=== PATIENT | female | born 1930 | race Caucasian/White ===

== ENCOUNTER 2017-09-03 17:32 | Inpatient (IN) | payer MEDICARE ==
[~2017-09-03] VITALS: Ht 162.6 cm; Wt 64.5 kg
[~2017-09-03 17:32] MED LIST: ASPIRIN81 MG PO; BETAPACE 80 MG80 MG PO; COLACE100 MG PO; HYDROCODON-ACE1 EAC7 PO; PLAVIX75 MG PO; PRAVACHOL20 MG PO; PROTONIX40 MG PO
[2017-09-03 18:06] LABS: BASOPHILS 0.1 % (0-2); EOSINOPHILS 0.2 % (0-7); HEMATOCRIT 42.8 % (36.0-48.0); HEMOGLOBIN 14.7 g/dL (12-16); IMMATURE GRANULOCYTES 0.2 % (0-5); LYMPHOCYTES 8.2 % (15-50); MCH 30.8 pg (26.0-34.0); MCHC 34.3 g/dL (31.0-37.0); MCV 89.7 fL (80.0-100.0); MEAN PLATELET VOLUME 10.5 fL (7.4-10.4); MONOCYTES 10.4 % (2-11); NEUTROPHILS 80.9 % (40-80); PLATELET COUNT 262 10x3/uL (130-400); RBC 4.77 10x6/uL (4.00-5.40); RDW 13.8 % (11.5-14.5); WBC 12.4 10x3/uL (4.8-10.8)
[2017-09-03 18:21] LABS: ALBUMIN 3.4 g/dL (3.4-5.0); ALKALINE PHOSPHATASE 120 U/L (46-116); ALT (SGPT) 68 U/L (10-68); BILIRUBIN - TOTAL 1.53 mg/dL (0.2-1.3); CALC OSMOLALITY 293 mosm/kg (275-300); CALCIUM 9.3 mg/dL (8.5-10.1); CHLORIDE - SERUM 102 mmol/L (98-107); CREATININE - SERUM 0.9 mg/dL (0.6-1.3); GLUCOSE 90 mg/dL (74-106); POTASSIUM - SERUM 3.3 mmol/L (3.5-5.1); PROTEIN - SERUM 7.2 g/dL (6.4-8.2); SODIUM 141 mmol/L (136-145); UREA NITROGEN 48 mg/dL (7-18); eGFR NON AFRICAN AMERICAN 63 mL/min (90-120)
[2017-09-03 18:28] LABS: APPEARANCE CLEAR (CLEAR); BILIRUBIN NEGATIVE (NEGATIVE); COLOR YELLOW (YELLOW); GLUCOSE NEGATIVE (NEGATIVE); KETONE MODERATE mg/dL (NEGATIVE); PROTEIN TRACE mg/dL (NEGATIVE); UROBILINOGEN NORMAL (NORMAL)
[2017-09-03 18:30] LABS: BACTERIA FEW /hpf (NONE SEEN); RED CELLS - URINE 0-5 /hpf (0-5); WHITE CELLS - URINE OCC /hpf (0-5)
[2017-09-03 18:53] LABS: CKMB 53.6 U/L (0.0-3.6); CREATINE KINASE 1892 UL (21-215)
[2017-09-03 18:57] LABS: TROPONIN-I 12.355 ng/mL (0.000-0.060)
[2017-09-03 21:36] VITALS: BP 159/66; BMI 23.5
[2017-09-03 22:00] VITALS: BP 159/66
[2017-09-03 23:00] VITALS: BP 131/52
[2017-09-04] VITALS (31 sets, daily range): BP systolic 72–135; BP diastolic 5–71
[2017-09-04 01:36] LABS: CREATINE KINASE 1382 UL (21-215); TROPONIN-I 11.317 ng/mL (0.000-0.060)
[2017-09-04 05:27] LABS: BASOPHILS 0.1 % (0-2); EOSINOPHILS 0.8 % (0-7); HEMATOCRIT 36.7 % (36.0-48.0); HEMOGLOBIN 12.2 g/dL (12-16); IMMATURE GRANULOCYTES 0.2 % (0-5); LYMPHOCYTES 11.3 % (15-50); MCH 30.4 pg (26.0-34.0); MCHC 33.2 g/dL (31.0-37.0); MCV 91.5 fL (80.0-100.0); MEAN PLATELET VOLUME 10.5 fL (7.4-10.4); MONOCYTES 11.2 % (2-11); NEUTROPHILS 76.4 % (40-80); PLATELET COUNT 235 10x3/uL (130-400); RBC 4.01 10x6/uL (4.00-5.40); WBC 9.3 10x3/uL (4.8-10.8)
[2017-09-04 06:08] LABS: CALC OSMOLALITY 290 mosm/kg (275-300); CALCIUM 8.3 mg/dL (8.5-10.1); CARBON DIOXIDE 23.1 mmol/L (21.0-32.0); CHLORIDE - SERUM 104 mmol/L (98-107); CKMB 22.7 U/L (0.0-3.6); CREATININE - SERUM 0.8 mg/dL (0.6-1.3); GLUCOSE 75 mg/dL (74-106); MAGNESIUM - SERUM 2.2 mg/dL (1.8-2.4); POTASSIUM - SERUM 3.1 mmol/L (3.5-5.1); SODIUM 140 mmol/L (136-145); UREA NITROGEN 48 mg/dL (7-18); eGFR NON AFRICAN AMERICAN 72 mL/min (90-120)
[2017-09-04 06:10] LABS: CREATINE KINASE 930 UL (21-215)
[2017-09-04 12:30] LABS: CKMB 16.1 U/L (0.0-3.6); CREATINE KINASE 645 UL (21-215); TROPONIN-I 6.611 ng/mL (0.000-0.060)
[2017-09-05] VITALS (23 sets, daily range): BP systolic 100–154; BP diastolic 49–98; Ht 162.6 cm; Wt 64.5 kg
[2017-09-05 05:03] LABS: BASOPHILS 0.1 % (0-2); EOSINOPHILS 3.2 % (0-7); HEMATOCRIT 34.1 % (36.0-48.0); HEMOGLOBIN 11.4 g/dL (12-16); IMMATURE GRANULOCYTES 0.3 % (0-5); LYMPHOCYTES 13.9 % (15-50); MCH 30.6 pg (26.0-34.0); MCHC 33.4 g/dL (31.0-37.0); MCV 91.7 fL (80.0-100.0); MEAN PLATELET VOLUME 10.8 fL (7.4-10.4); MONOCYTES 9.3 % (2-11); NEUTROPHILS 73.2 % (40-80); PLATELET COUNT 206 10x3/uL (130-400); RBC 3.72 10x6/uL (4.00-5.40); RDW 14.1 % (11.5-14.5); WBC 9.1 10x3/uL (4.8-10.8)
[2017-09-05 05:25] LABS: ALKALINE PHOSPHATASE 79 U/L (46-116); BILIRUBIN - TOTAL 0.76 mg/dL (0.2-1.3); CALCIUM 7.6 mg/dL (8.5-10.1); CARBON DIOXIDE 25.7 mmol/L (21.0-32.0); CHLORIDE - SERUM 109 mmol/L (98-107); CREATININE - SERUM 0.6 mg/dL (0.6-1.3); PROTEIN - SERUM 5.4 g/dL (6.4-8.2); SODIUM 142 mmol/L (136-145); eGFR NON AFRICAN AMERICAN > 90 mL/min (90-120)
[2017-09-05 05:27] LABS: ALBUMIN 2.3 g/dL (3.4-5.0); ALT (SGPT) 41 U/L (10-68); CALC OSMOLALITY 290 mosm/kg (275-300); GLUCOSE 123 mg/dL (74-106); POTASSIUM - SERUM 2.9 mmol/L (3.5-5.1); UREA NITROGEN 33 mg/dL (7-18)
[2017-09-06] VITALS (21 sets, daily range): BP systolic 120–169; BP diastolic 62–94
[2017-09-06 05:14] LABS: BASOPHILS 0.2 % (0-2); EOSINOPHILS 4.5 % (0-7); HEMATOCRIT 37.6 % (36.0-48.0); HEMOGLOBIN 12.2 g/dL (12-16); IMMATURE GRANULOCYTES 0.2 % (0-5); MCH 30.3 pg (26.0-34.0); MCHC 32.4 g/dL (31.0-37.0); MCV 93.5 fL (80.0-100.0); MEAN PLATELET VOLUME 10.9 fL (7.4-10.4); MONOCYTES 9.3 % (2-11); NEUTROPHILS 67.8 % (40-80); PLATELET COUNT 210 10x3/uL (130-400); RBC 4.02 10x6/uL (4.00-5.40); RDW 14.2 % (11.5-14.5); WBC 8.6 10x3/uL (4.8-10.8)
[2017-09-06 05:36] LABS: ALBUMIN 2.5 g/dL (3.4-5.0); ALKALINE PHOSPHATASE 86 U/L (46-116); ALT (SGPT) 39 U/L (10-68); BILIRUBIN - TOTAL 0.57 mg/dL (0.2-1.3); CALC OSMOLALITY 287 mosm/kg (275-300); CALCIUM 7.6 mg/dL (8.5-10.1); CARBON DIOXIDE 27.4 mmol/L (21.0-32.0); CHLORIDE - SERUM 111 mmol/L (98-107); CREATININE - SERUM 0.6 mg/dL (0.6-1.3); GLUCOSE 98 mg/dL (74-106); POTASSIUM - SERUM 3.9 mmol/L (3.5-5.1); PROTEIN - SERUM 5.8 g/dL (6.4-8.2); SODIUM 143 mmol/L (136-145); eGFR NON AFRICAN AMERICAN > 90 mL/min (90-120)
[2017-09-06 05:53] LABS: UREA NITROGEN 20 mg/dL (7-18)
[2017-09-07] VITALS (13 sets, daily range): BP systolic 133–179; BP diastolic 57–84
[2017-09-07 04:23] LABS: BASOPHILS 0.2 % (0-2); EOSINOPHILS 3.2 % (0-7); HEMATOCRIT 36.8 % (36.0-48.0); IMMATURE GRANULOCYTES 0.2 % (0-5); LYMPHOCYTES 11.5 % (15-50); MCH 30.4 pg (26.0-34.0); MCHC 32.6 g/dL (31.0-37.0); MCV 93.2 fL (80.0-100.0); MEAN PLATELET VOLUME 10.9 fL (7.4-10.4); MONOCYTES 7.6 % (2-11); NEUTROPHILS 77.3 % (40-80); PLATELET COUNT 197 10x3/uL (130-400); RBC 3.95 10x6/uL (4.00-5.40); RDW 13.9 % (11.5-14.5); WBC 9.3 10x3/uL (4.8-10.8)
[2017-09-07 04:48] LABS: ALBUMIN 2.5 g/dL (3.4-5.0); ALKALINE PHOSPHATASE 103 U/L (46-116); ALT (SGPT) 42 U/L (10-68); BILIRUBIN - TOTAL 0.71 mg/dL (0.2-1.3); CALC OSMOLALITY 281 mosm/kg (275-300); CALCIUM 7.8 mg/dL (8.5-10.1); CHLORIDE - SERUM 107 mmol/L (98-107); CREATININE - SERUM 0.5 mg/dL (0.6-1.3); GLUCOSE 98 mg/dL (74-106); PROTEIN - SERUM 6.1 g/dL (6.4-8.2); SODIUM 141 mmol/L (136-145); eGFR NON AFRICAN AMERICAN > 90 mL/min (90-120)
[2017-09-07 04:50] LABS: UREA NITROGEN 14 mg/dL (7-18)
[2017-09-07] MEDS ORDERED: NORVASC5 MG PO (10:21)
== END 2017-09-07 15:37 | DRG 553 ==
LOC: D.ER 17:32 → D.MS 19:19 → D.CVICU 19:19 → D.ICU 20:19 → D.CVICU 09-06 21:58
PROVIDERS: Family Medicine
DX: M16.11 Unilateral primary osteoarthritis, right hip (principal); I21.4 Non-ST elevation (NSTEMI) myocardial infarction; I24.8 Other forms of acute ischemic heart disease; F03.90 Unspecified dementia, unspecified severity, without behavioral disturbance, psychotic disturbance, mood disturbance, and anxiety; I25.10 Atherosclerotic heart disease of native coronary artery without angina pectoris; I95.9 Hypotension, unspecified; W19.XXXA Unspecified fall, initial encounter; I10 Essential (primary) hypertension; I48.91 Unspecified atrial fibrillation; E78.5 Hyperlipidemia, unspecified; E86.0 Dehydration; Z95.5 Presence of coronary angioplasty implant and graft; R41.0 Disorientation, unspecified

== ENCOUNTER 2017-09-07 15:36 | Inpatient (IN) | payer MEDICARE ==
[~2017-09-07] VITALS: Ht 162.6 cm; Wt 39.0 kg
--- NOTE | ~2017-09-07 | CN ---
PATIENT NAME:DIANA GOMEZ MEDICAL RECORD: [id number] : [birth year] LOCATION:[id number] ADMIT DATE: 09/07/17 ACCOUNT: [id number] CONSULTING PHYSICIAN: MADINA BURGOS MD REFERRING PHYSICIAN: SANDIE CONNELLY MD DATE OF CONSULTATION: 09/10/2017 PSYCHIATRIC CONSULTATION IDENTIFYING DATA: The patient is 86 years old, and she is admitted to the rehab unit secondary to hip fracture with fall and some rhabdomyolysis. The patient is a very nice lady, but she is only partially oriented. She tells me that she did not break her hip, but that she fell and does not really know how she got all the bruises on her arms. I presume she has bruises elsewhere, but her arms are sticking out of covers. She tells me that she likes being here. She would like to get stronger. She has no depressive symptoms. She denies psychotic symptoms, and she denies intent to harm herself or others. She has no history of substance abuse. MENTAL STATUS EXAMINATION: The patient is awake, alert, and oriented to person, place, and somewhat to time and situation. Her mood is euthymic. Her affect is appropriate. Thought processes are slightly circumstantial, but not disorganized in any serious way. Her memory, concentration, and abstraction abilities are at least mildly impaired, probably more moderately so. She certainly has no evidence of direct dangerousness to herself or others as well as no psychotic symptoms. ASSESSMENT: Dementia, type uncertain, but probably Alzheimer disease. PLAN: This patient is in need of 26-wnuz-m-day supervision. The least restrictive environment is something that needs to be worked out between her, her daughter, and case management. She is not acutely dangerous. She does not meet criteria for an inpatient stay on the behavioral unit and certainly given the circumstances that brought her here, she is going to need significant help. There is no evidence of direct or acute dangerousness to others, and if a group home is the least restrictive environment, I see no problem with her going there. TRANSINT:[id number] Voice Confirmation ID: [id number] DOCUMENT ID: [id number] MADINA BURGOS MD at 1203 CC: [id number] DICTATION DATE: 09/10/17 1352 SUB ARC OPERATOR: 09/10/17 1423 ADM IN [facility] [address] [facility], [facility]
--- NOTE | ~2017-09-07 | RHP ---
PATIENT: DIANA GOMEZ MEDICAL RECORD: [id number] ACCOUNT: [id number] LOCATION:[facility] : [birth year] ADMISSION DATE: 09/07/17 REHABILITATION HISTORY AND PHYSICAL EXAMINATION POST ADMISSION PHYSICIAN EXAMINATION DATE OF ADMISSION: 09/07/2017. ADMITTING DIAGNOSIS: Rhabdomyolysis. HISTORY OF PRESENT ILLNESS: The patient admitted to the inpatient rehab with neurological condition and rhabdomyolysis. She is an 86-year-old female patient admitted from the Emergency Room with complaint of hip fracture, noted the patient had been on the floor for extended period of time, approximately 3 days prior to being found. She had elevated cardiac enzymes that have slowly trended down. Her CK was 1892, down to 645. Her CK-MB went from 53.6-16.1. Troponin went from 12 down to 3. She was found to have severe right hip degenerative joint disease without any acute fracture. She has a history of coronary artery disease. She underwent multivessel stenting a year ago per cardiology, she has been followed by cardiology and had an echo completed. While in the acute hospital, spoke with her daughter, stated her mom has been in acute rehab in the past with good outcomes and would like for her to stay here and do this prior to discharge. She lives at home alone. She is moderately independent with use of a rolling walker and was independent with her ADLs. She has a neighbor that checks on her due to her daughter living out of state. Apparently, she has increased confusion during her acute hospitalization. She has been wearing O2 at 2 liters via nasal cannula and been on telemetry. She had a bout of atrial fib but converted back to a sinus rhythm. She is currently set up to max assist for ADLs and max assist to total assist for her mobility. She and her daughter plan for her return home and get back to her prior level of functioning or better if possible. COMORBIDITIES: In this patient include atrial fib, rhabdomyolysis, elevated CK and CK-MB, acute falls at home, elevated troponin, hip pain, dementia, severe degenerative joint disease, confusion, non-Q-wave FL, history of hypertension, and hyperlipidemia. PAST MEDICAL HISTORY: Significant for atrial fib, coronary artery disease, hypertension, and hyperlipidemia. PAST SURGICAL HISTORY: Includes tonsillectomy, back surgery, PTCA with stents, and cataract surgery in the past. ALLERGIES: No known drug allergies. CURRENT MEDICATIONS: Include Pravachol 20 mg daily, Protonix 40 mg daily, Colace 100 mg daily, Plavix 75 mg daily, aspirin chewable 81 mg daily, Norvasc 5 mg daily, Neosporin topically to apply b.i.d., polyethylene glycol 17 grams in 8 ounces of water daily, sotalol 80 mg b.i.d., and Harrison 5/325 q. 6 hours p.r.n. HABITS: No alcohol or tobacco use. FAMILY HISTORY: Noncontributory. SOCIAL HISTORY: Once again, the patient hopes to return back home and get back HISTORY AND PHYSICAL [id number] JASON,DIANA to her prior level of functioning. REVIEW OF SYSTEMS: GENERAL: Denies weakness or fatigue. HEENT: Denies cold, cough, or congestion. CARDIOVASCULAR: Denies any chest pain. PHYSICAL EXAMINATION: VITAL SIGNS: Stable, afebrile. GENERAL: Elderly female in no acute distress, alert upon exam. HEENT: Normocephalic and atraumatic. Mucosa moist. NECK: Supple. No lymphadenopathy. LUNGS: Clear. HEART: Regular rate and rhythm. ABDOMEN: Benign. EXTREMITIES: No clubbing, cyanosis, or edema. NEUROLOGIC: Slow to mentate. She does have some mild dementia. LABORATORY DATA: White count is 9.6, H&H 12 and 36, and platelet count was noted to be 189. Sodium 142, potassium 3.4, BUN and creatinine of 10 and 0.4, and blood sugar 93. ASSESSMENT: This is an 86-year-old female patient admitted to rehab with a working diagnosis of rhabdomyolysis. The patient has potential to make improvement. We instituted the following multidisciplinary therapies including to, but not limited to physical, occupational, respiratory, speech, nutritional services, prosthetics and orthotics. Given her complex condition and risk for more complications, rehabilitation services cannot be provided at a low level of care such as a longterm facility. PLAN: 1. Admit to [facility] rehab for intensive inpatient therapy to include the following disciplines: A. Physical therapy to improve gait, all transfer skills and bed mobility to a modified independent level. B. Occupational therapy to improve activities of daily living to a modified independent level. C. Case management to assist with discharge planning and placement options. D. Nutrition to assist with nutritional needs. E. Rehabilitation nursing to assist in monitoring the patient's underlying medical conditions and to assist with any type of bowel or bladder management. 2. The patient's current medication and medical care will be continued. 3. The patient will be placed on standard fall precautions. 4. The patient's estimated length of stay is approximately 7-10 days. 5. Discuss this patient during care team staff meeting this week. TRANSINT:[id number] Voice Confirmation ID: [id number] DOCUMENT ID: [id number] ANGEL notes whether there has been none or any medical/functional change since admission: - No change since prescreen. ANGEL attests patient continues to be appropriate for IRF: HISTORY AND PHYSICAL [id number] DIANA GOMEZ - Continues to be appropriate. SANDIE CONNELLY MD at 1838 CC: [id number] DICTATION DATE: 09/08/17 0849 ELECTRONICS PROCESSOR: 09/08/17 1128 ADM IN [place] [id number] [place] [id number]
[~2017-09-07 15:36] MED LIST changes: +NORVASC5 MG PO
[2017-09-07 18:34] VITALS: BP 143/66; BMI 21.0
[2017-09-08 07:18] LABS: BASOPHILS 0.2 % (0-2); EOSINOPHILS 4.6 % (0-7); HEMATOCRIT 35.6 % (36.0-48.0); HEMOGLOBIN 11.9 g/dL (12-16); IMMATURE GRANULOCYTES 0.5 % (0-5); MCH 30.7 pg (26.0-34.0); MCHC 33.4 g/dL (31.0-37.0); MCV 91.8 fL (80.0-100.0); MEAN PLATELET VOLUME 10.7 fL (7.4-10.4); MONOCYTES 9.6 % (2-11); NEUTROPHILS 68.1 % (40-80); PLATELET COUNT 189 10x3/uL (130-400); RBC 3.88 10x6/uL (4.00-5.40); RDW 13.8 % (11.5-14.5); WBC 9.6 10x3/uL (4.8-10.8)
[2017-09-08 07:55] LABS: CALC OSMOLALITY 281 mosm/kg (275-300); CALCIUM 7.7 mg/dL (8.5-10.1); CARBON DIOXIDE 28.6 mmol/L (21.0-32.0); CHLORIDE - SERUM 106 mmol/L (98-107); CREATININE - SERUM 0.4 mg/dL (0.6-1.3); GLUCOSE 93 mg/dL (74-106); POTASSIUM - SERUM 3.4 mmol/L (3.5-5.1); SODIUM 142 mmol/L (136-145); eGFR NON AFRICAN AMERICAN > 90 mL/min (90-120)
[2017-09-08 07:56] LABS: UREA NITROGEN 10 mg/dL (7-18)
[2017-09-08 09:01] VITALS: BP 186/86
[2017-09-08 10:33] VITALS: Ht 162.6 cm; Wt 39.0 kg
[2017-09-08 19:00] VITALS: BP 154/70
[2017-09-09 08:48] VITALS: BP 159/75
[2017-09-09 19:11] VITALS: BP 145/67
[2017-09-10 06:15] LABS: BASOPHILS 0.2 % (0-2); EOSINOPHILS 3.8 % (0-7); HEMATOCRIT 37.1 % (36.0-48.0); HEMOGLOBIN 12.3 g/dL (12-16); LYMPHOCYTES 16.6 % (15-50); MCH 30.3 pg (26.0-34.0); MCHC 33.2 g/dL (31.0-37.0); MCV 91.4 fL (80.0-100.0); MONOCYTES 9.8 % (2-11); NEUTROPHILS 68.6 % (40-80); PLATELET COUNT 208 10x3/uL (130-400); RBC 4.06 10x6/uL (4.00-5.40); RDW 13.7 % (11.5-14.5)
[2017-09-10 06:35] LABS: CALC OSMOLALITY 283 mosm/kg (275-300); CALCIUM 8.2 mg/dL (8.5-10.1); CARBON DIOXIDE 32.2 mmol/L (21.0-32.0); CHLORIDE - SERUM 103 mmol/L (98-107); CREATININE - SERUM 0.6 mg/dL (0.6-1.3); GLUCOSE 98 mg/dL (74-106); POTASSIUM - SERUM 3.5 mmol/L (3.5-5.1); SODIUM 143 mmol/L (136-145); UREA NITROGEN 11 mg/dL (7-18); eGFR NON AFRICAN AMERICAN > 90 mL/min (90-120)
[2017-09-10 18:18] VITALS: BP 157/59
[2017-09-10 20:00] VITALS: BP 107/42
[2017-09-11 08:29] VITALS: BP 141/85
[2017-09-11 13:01] LABS: APPEARANCE CLEAR (CLEAR); BILIRUBIN NEGATIVE (NEGATIVE); COLOR YELLOW (YELLOW); GLUCOSE NEGATIVE (NEGATIVE); KETONE NEGATIVE (NEGATIVE); NITRITE NEGATIVE (NEGATIVE); PROTEIN NEGATIVE (NEGATIVE); SPECIFIC GRAVITY 1.005 (1.005-1.020); UROBILINOGEN NORMAL (NORMAL)
[2017-09-11 23:18] VITALS: BP 118/43
[2017-09-12 06:27] LABS: BASOPHILS 0.2 % (0-2); EOSINOPHILS 5.3 % (0-7); HEMATOCRIT 33.8 % (36.0-48.0); HEMOGLOBIN 11.1 g/dL (12-16); IMMATURE GRANULOCYTES 0.5 % (0-5); LYMPHOCYTES 16.1 % (15-50); MCH 29.8 pg (26.0-34.0); MCHC 32.8 g/dL (31.0-37.0); MCV 90.9 fL (80.0-100.0); MEAN PLATELET VOLUME 10.9 fL (7.4-10.4); NEUTROPHILS 67.9 % (40-80); PLATELET COUNT 192 10x3/uL (130-400); RBC 3.72 10x6/uL (4.00-5.40); RDW 13.8 % (11.5-14.5); WBC 8.4 10x3/uL (4.8-10.8)
[2017-09-12 06:44] LABS: ALBUMIN 2.5 g/dL (3.4-5.0); ALKALINE PHOSPHATASE 98 U/L (46-116); ALT (SGPT) 25 U/L (10-68); AMYLASE - SERUM 27 U/L (25-115); BILIRUBIN - TOTAL 0.47 mg/dL (0.2-1.3); CALC OSMOLALITY 282 mosm/kg (275-300); CALCIUM 7.6 mg/dL (8.5-10.1); CARBON DIOXIDE 35.4 mmol/L (21.0-32.0); CHLORIDE - SERUM 102 mmol/L (98-107); CREATININE - SERUM 0.6 mg/dL (0.6-1.3); GLUCOSE 97 mg/dL (74-106); LIPASE 70 U/L (73-393); POTASSIUM - SERUM 3.5 mmol/L (3.5-5.1); PROTEIN - SERUM 5.7 g/dL (6.4-8.2); SODIUM 141 mmol/L (136-145); UREA NITROGEN 17 mg/dL (7-18); eGFR NON AFRICAN AMERICAN > 90 mL/min (90-120)
[2017-09-12 08:08] VITALS: BP 139/86
[2017-09-12 19:43] VITALS: BP 118/51
[2017-09-13 07:09] LABS: BASOPHILS 0.2 % (0-2); EOSINOPHILS 4.9 % (0-7); HEMATOCRIT 33.9 % (36.0-48.0); IMMATURE GRANULOCYTES 0.3 % (0-5); LYMPHOCYTES 17.6 % (15-50); MCH 29.8 pg (26.0-34.0); MCHC 32.4 g/dL (31.0-37.0); MCV 91.9 fL (80.0-100.0); MEAN PLATELET VOLUME 11.2 fL (7.4-10.4); MONOCYTES 8.7 % (2-11); NEUTROPHILS 68.3 % (40-80); PLATELET COUNT 217 10x3/uL (130-400); RBC 3.69 10x6/uL (4.00-5.40); RDW 13.8 % (11.5-14.5); WBC 8.8 10x3/uL (4.8-10.8)
[2017-09-13 07:20] LABS: CALC OSMOLALITY 279 mosm/kg (275-300); CALCIUM 7.7 mg/dL (8.5-10.1); CARBON DIOXIDE 30.4 mmol/L (21.0-32.0); CHLORIDE - SERUM 102 mmol/L (98-107); CREATININE - SERUM 0.5 mg/dL (0.6-1.3); GLUCOSE 91 mg/dL (74-106); POTASSIUM - SERUM 3.3 mmol/L (3.5-5.1); SODIUM 140 mmol/L (136-145); UREA NITROGEN 15 mg/dL (7-18); eGFR NON AFRICAN AMERICAN > 90 mL/min (90-120)
[2017-09-13 08:00] VITALS: BP 121/57
[2017-09-13 19:41] VITALS: BP 147/53
[2017-09-14 08:27] LABS: CALC OSMOLALITY 285 mosm/kg (275-300); CALCIUM 8.2 mg/dL (8.5-10.1); CARBON DIOXIDE 28.9 mmol/L (21.0-32.0); CHLORIDE - SERUM 105 mmol/L (98-107); CREATININE - SERUM 0.6 mg/dL (0.6-1.3); GLUCOSE 97 mg/dL (74-106); POTASSIUM - SERUM 3.4 mmol/L (3.5-5.1); SODIUM 143 mmol/L (136-145); UREA NITROGEN 16 mg/dL (7-18); eGFR NON AFRICAN AMERICAN > 90 mL/min (90-120)
[2017-09-14 08:38] VITALS: BP 141/51
[2017-09-15 01:55] VITALS: BP 160/72
[2017-09-15 06:21] LABS: BASOPHILS 0.3 % (0-2); EOSINOPHILS 3.6 % (0-7); HEMATOCRIT 34.8 % (36.0-48.0); HEMOGLOBIN 11.5 g/dL (12-16); IMMATURE GRANULOCYTES 0.3 % (0-5); LYMPHOCYTES 11.7 % (15-50); MCV 90.9 fL (80.0-100.0); MEAN PLATELET VOLUME 10.8 fL (7.4-10.4); MONOCYTES 6.5 % (2-11); NEUTROPHILS 77.6 % (40-80); PLATELET COUNT 249 10x3/uL (130-400); RBC 3.83 10x6/uL (4.00-5.40); RDW 14.1 % (11.5-14.5)
[2017-09-15 06:29] LABS: WBC 6.2 10x3/uL (4.8-10.8)
[2017-09-15 06:57] LABS: CALC OSMOLALITY 281 mosm/kg (275-300); CALCIUM 8.3 mg/dL (8.5-10.1); CHLORIDE - SERUM 103 mmol/L (98-107); CREATININE - SERUM 0.6 mg/dL (0.6-1.3); GLUCOSE 94 mg/dL (74-106); SODIUM 141 mmol/L (136-145); UREA NITROGEN 16 mg/dL (7-18); eGFR NON AFRICAN AMERICAN > 90 mL/min (90-120)
[2017-09-15 06:59] LABS: POTASSIUM - SERUM 4.3 mmol/L (3.5-5.1)
[2017-09-15 07:55] VITALS: BP 136/70
[2017-09-15 11:34] VITALS: BP 163/64
[2017-09-15 12:10] VITALS: BP 100/58
[2017-09-15 12:47] VITALS: BP 132/46
[2017-09-15 20:00] VITALS: BP 126/52
[2017-09-16 08:30] VITALS: BP 155/62
[2017-09-16 19:21] VITALS: BP 158/62
[2017-09-16 19:30] VITALS: BP 113/51
[2017-09-17 06:58] LABS: BASOPHILS 0.3 % (0-2); EOSINOPHILS 1.6 % (0-7); HEMATOCRIT 36.1 % (36.0-48.0); HEMOGLOBIN 11.8 g/dL (12-16); IMMATURE GRANULOCYTES 0.3 % (0-5); MCH 29.5 pg (26.0-34.0); MCHC 32.7 g/dL (31.0-37.0); MCV 90.3 fL (80.0-100.0); MONOCYTES 11.7 % (2-11); NEUTROPHILS 63.1 % (40-80); PLATELET COUNT 248 10x3/uL (130-400); WBC 3.7 10x3/uL (4.8-10.8)
[2017-09-17 07:12] LABS: CALC OSMOLALITY 279 mosm/kg (275-300); CALCIUM 7.9 mg/dL (8.5-10.1); CARBON DIOXIDE 27.6 mmol/L (21.0-32.0); CHLORIDE - SERUM 101 mmol/L (98-107); CREATININE - SERUM 0.6 mg/dL (0.6-1.3); GLUCOSE 81 mg/dL (74-106); SODIUM 139 mmol/L (136-145); UREA NITROGEN 20 mg/dL (7-18); eGFR NON AFRICAN AMERICAN > 90 mL/min (90-120)
[2017-09-17 19:21] VITALS: BP 158/62
[2017-09-18 08:12] VITALS: BP 128/50
[2017-09-18 19:24] VITALS: BP 136/50
[2017-09-19 08:18] VITALS: BP 148/59
[2017-09-19 19:23] VITALS: BP 132/55
[2017-09-20 07:05] LABS: BASOPHILS 0.3 % (0-2); EOSINOPHILS 5.5 % (0-7); HEMATOCRIT 38.7 % (36.0-48.0); HEMOGLOBIN 12.8 g/dL (12-16); IMMATURE GRANULOCYTES 0.3 % (0-5); LYMPHOCYTES 33.1 % (15-50); MCH 29.8 pg (26.0-34.0); MCHC 33.1 g/dL (31.0-37.0); MCV 90.2 fL (80.0-100.0); MEAN PLATELET VOLUME 10.2 fL (7.4-10.4); MONOCYTES 13.5 % (2-11); NEUTROPHILS 47.3 % (40-80); PLATELET COUNT 288 10x3/uL (130-400); RBC 4.29 10x6/uL (4.00-5.40); RDW 13.6 % (11.5-14.5); WBC 3.1 10x3/uL (4.8-10.8)
[2017-09-20 07:22] LABS: CALC OSMOLALITY 271 mosm/kg (275-300); CALCIUM 8.3 mg/dL (8.5-10.1); CARBON DIOXIDE 29.4 mmol/L (21.0-32.0); CHLORIDE - SERUM 100 mmol/L (98-107); CREATININE - SERUM 0.5 mg/dL (0.6-1.3); GLUCOSE 97 mg/dL (74-106); POTASSIUM - SERUM 3.4 mmol/L (3.5-5.1); SODIUM 137 mmol/L (136-145); UREA NITROGEN 7 mg/dL (7-18); eGFR NON AFRICAN AMERICAN > 90 mL/min (90-120)
[2017-09-20 08:00] VITALS: BP 118/77
[2017-09-20 23:50] VITALS: BP 121/52
[2017-09-21 08:00] VITALS: BP 155/56
[2017-09-21 20:00] VITALS: BP 116/59
[2017-09-22 08:13] VITALS: BP 141/55
[2017-09-22 23:15] VITALS: BP 110/79
[2017-09-23 08:00] VITALS: BP 119/55
[2017-09-23 08:21] LABS: CALC OSMOLALITY 281 mosm/kg (275-300); CALCIUM 8.3 mg/dL (8.5-10.1); CARBON DIOXIDE 29.8 mmol/L (21.0-32.0); CHLORIDE - SERUM 104 mmol/L (98-107); CREATININE - SERUM 0.6 mg/dL (0.6-1.3); GLUCOSE 85 mg/dL (74-106); SODIUM 142 mmol/L (136-145); UREA NITROGEN 12 mg/dL (7-18); eGFR NON AFRICAN AMERICAN > 90 mL/min (90-120)
[2017-09-23 08:34] LABS: HEMATOCRIT 38.8 % (36.0-48.0); HEMOGLOBIN 12.7 g/dL (12-16); LYMPHOCYTES 27.9 % (15-50); MCH 29.1 pg (26.0-34.0); MCHC 32.7 g/dL (31.0-37.0); MCV 88.8 fL (80.0-100.0); MEAN PLATELET VOLUME 10.1 fL (7.4-10.4); NEUTROPHILS 56.5 % (40-80); PLATELET COUNT 307 10x3/uL (130-400); RBC 4.37 10x6/uL (4.00-5.40); RDW 13.6 % (11.5-14.5); WBC 4.5 10x3/uL (4.8-10.8)
[2017-09-23 23:30] VITALS: BP 91/48
[2017-09-24 08:00] VITALS: BP 124/54
== END 2017-09-24 11:37 | DRG 558 ==
LOC: D.REHAB 15:36
PROVIDERS: Emergency Medicine; Internal Medicine Gastroenterology
DX: M62.82 Rhabdomyolysis (principal); I48.91 Unspecified atrial fibrillation; M16.11 Unilateral primary osteoarthritis, right hip; I25.10 Atherosclerotic heart disease of native coronary artery without angina pectoris; R41.0 Disorientation, unspecified; I10 Essential (primary) hypertension; E78.5 Hyperlipidemia, unspecified; W19.XXXA Unspecified fall, initial encounter; R74.8 Abnormal levels of other serum enzymes